=== PATIENT | male | born 1965 | race Caucasian/White ===

== ENCOUNTER 2016-11-20 15:10 | Emergency (ER) | payer OTHER, BC ==
[~2016-11-20] VITALS: Ht 165.1 cm; Wt 103.7 kg
[2016-11-20] MEDS ORDERED: FLEXERIL10 MG PO (17:16)
[2016-11-20] MEDS ORDERED: MOTRIN800 MG PO (17:16)
[2016-11-20 17:47] VITALS: BP 165/99
== END 2016-11-20 17:47 | disposition home or self-care (01) ==
LOC: EME 15:10 → EDBD 15:10 → EME 17:47
DX: S29.012A Strain of muscle and tendon of back wall of thorax, initial encounter (principal); S16.1XXA Strain of muscle, fascia and tendon at neck level, initial encounter; V49.40XA Driver injured in collision with unspecified motor vehicles in traffic accident, initial encounter; Z86.73 Personal history of transient ischemic attack (TIA), and cerebral infarction without residual deficits; Z87.891 Personal history of nicotine dependence
CPT/HCPCS: 72040; 72070; 72100; 99281; 99283